=== PATIENT | female | born 1965 | race Caucasian/White ===

== ENCOUNTER 2020-01-26 12:50 | Emergency (ER) | payer OTHER ==
[~2020-01-26] VITALS: Ht 165.1 cm; Wt 59.0 kg
--- NOTE | 2020-01-26 13:06 | NUR ---
Patient discharged to home in stable condition. Written and verbal after care instructions given. Patient verbalizes understanding of instructions. Stressed follow up or return to ER for worsening s/s.
== END 2020-01-26 13:08 | disposition home or self-care (01) ==
LOC: ER 12:50
DX: Z03.818 Encounter for observation for suspected exposure to other biological agents ruled out (principal)
CPT/HCPCS: 99283; U0003; A4663